=== PATIENT | male | born 1950 ===

== ENCOUNTER 2018-11-20 17:32 | Observation (INO) | payer OTHER ==
[2018-11-20] MEDS ORDERED: Iodixanol 320 MG/ML 100 ML BOTTLE IV ONE (17:40)
[2018-11-20 17:45] LABS: BASO # 0.1 K/uL (0.0-0.2); BASO % 1.4 % (0.0-2.0); EOS # 0.1 K/uL (0.0-0.7); EOS % 0.8 % (0.0-4.0); LYMPH % 21.8 % (20.0-40.0); MEAN CORPUSCULAR HEMOGLOBIN 28.3 pg (27.0-31.0); MEAN CORPUSCULAR HGB CONC 33.6 g/dL (33.0-37.0); MEAN PLATELET VOLUME 9.3 fL (7.2-11.7); MONO # 0.8 K/uL (0.0-0.8); MONO % 8.7 % (0.0-10.0); NEUT # 6.1 K/uL (1.8-7.0); NEUT % 67.3 % (50.0-75.0); NRBC % 0.1 % (0.0-2.0); RBC 4.9 Mil/uL (4.40-5.90); RED CELL DISTRIBUTION WIDTH 14.5 % (11.5-14.5)
[2018-11-20 17:47] LABS: HEMOGLOBIN 13.9 g/dL (12.0-18.0)
[2018-11-20 17:48] LABS: MEAN CELL VOLUME 84.1 fL (80.0-94.0)
[2018-11-20 17:53] LABS: INR 1.2; PROTHROMBIN TIME 13.2 SECONDS (9.7-12.2)
[2018-11-20 17:58] VITALS: BMI 27.9
--- NOTE | 2018-11-20 18:02 | CT ---
Date of service: 11/20/2018 PROCEDURE: CT HEAD WITHOUT CONTRAST. HISTORY: Code Stroke COMPARISON: None available. TECHNIQUE: Axial computed tomography images were obtained through the head/brain without intravenous contrast. Radiation dose: Total exam DLP = 918.97 mGy-cm. This CT exam was performed using one or more of the following dose reduction techniques: Automated exposure control, adjustment of the mA and/or kV according to patient size, and/or use of iterative reconstruction technique. FINDINGS: HEMORRHAGE: No intracranial hemorrhage. BRAIN: Diffuse atrophy with prominence of the ventricles and sulci noted. No mass effect or edema. Intracranial atherosclerosis. Right basal ganglia encephalomalacia. Hypodensity at the level of the right frontal horn lateral ventricle scattered periventricular and subcortical white matter hypodensities, which are nonspecific, but often seen with chronic microvascular ischemic disease. Please note that MRI with diffusion imaging is more sensitive in the detection of acute ischemic event. VENTRICLES: No hydrocephalus. CALVARIUM: Unremarkable. PARANASAL SINUSES: Unremarkable as visualized. No significant inflammatory changes. MASTOID AIR CELLS: Unremarkable as visualized. No inflammatory changes. OTHER FINDINGS: None. IMPRESSION: Right basal ganglia encephalomalacia. Additional hypodensity at the level of the right frontal horn lateral ventricle likely related to age indeterminate ischemic change. Acute on chronic ischemia cannot be excluded. Please note that MRI with diffusion imaging is more sensitive in the detection of acute ischemic event and recommended for further evaluation if indicated. Additional nonspecific white matter changes. Generalized atrophy. Findings discussed with Dr. Nina on 11/20/18 at 5:56 p.m.
[2018-11-20 18:27] LABS: ALB/GLOB RATIO 1.7 (1.0-2.1); ALBUMIN 4.5 g/dL (3.5-5.0); ALT/SGPT 14 U/L (21-72); AST/SGOT 31 U/L (17-59); BLOOD UREA NITROGEN 15 mg/dL (9-20); CALCIUM 10.1 mg/dl (8.6-10.4); GFR NON-AFRICAN AMERICAN > 60; HDL CHOLESTEROL 44 mg/dL (30-70)
[2018-11-20 18:38] LABS: LDL CHOLESTEROL 79 mg/dL (0-129)
--- NOTE | 2018-11-20 18:53 | C.PDOC ---
History Of Present Illness 68 year old male brought by EMS from doctor's office. Patient has a PSHx of quadruple bypass. Patient states that he started to feel weak. Patient's doctor sent to the ED to rule out CVA. While at the doctor's office that patient was experiencing left sided weakness and slurred that has since resolved. Patient states that he still feels weak. Time Seen by Provider: 11/20/18 18:06 Chief Complaint (Nursing): Weakness/Neurological Deficit History Per: Patient, EMS History/Exam Limitations: no limitations Onset/Duration Of Symptoms: Hrs Current Symptoms Are (Timing): Still Present - Symptoms Of CVA Associated Symptoms: Impaired Speech, Other (left sided weakness) Character Of Deficits: Left: Weakness Past Medical History Reviewed: Historical Data, Nursing Documentation, Vital Signs Vital Signs: Last Vital Signs Temp Pulse 99 H 11/20/18 18:08 Resp 18 11/20/18 18:08 BP 199/108 H 11/20/18 18:08 Pulse Ox 99 11/20/18 18:08 - Medical History PMH: Arthritis, HTN, Hypercholesterolemia Surgical History: CABG - [facility] Procedures CATARAC PHACOEMULS/ASPIR (11/13/14) INSERT LENS AT CATAR EXT (11/13/14) Family History: States: Unknown Family Hx - Social History Hx Alcohol Use: No Hx Substance Use: No - Immunization History Hx Tetanus Toxoid Vaccination: No Hx Influenza Vaccination: No Hx Pneumococcal Vaccination: No Review Of Systems Except As Marked, All Systems Reviewed And Found Negative. Constitutional: Positive for: Weakness Physical Exam - Physical Exam Appears: Well, Non-toxic, No Acute Distress Skin: Normal Color, Warm, Dry Head: Atraumatic, Normacephalic Eye(s): bilateral: Normal Inspection, PERRL, EOMI Nose: Normal Oral Mucosa: Moist Neck: Supple Chest: Symmetrical Cardiovascular: Rhythm Regular, No Murmur Respiratory: No Accessory Muscle Use, No Rales, No Rhonchi, No Wheezing Gastrointestinal/Abdominal: Normal Exam, Soft, No Tenderness, No Distention Extremity: Other (mild left upper extremity weakness. ) Extremity: Bilateral: Atraumatic, Normal Color And Temperature, Normal ROM Neurological/Psych: Oriented x3, Normal Speech, Normal Cognition ED Course And Treatment - Laboratory Results Result Diagrams: 11/20/18 17:39 11/20/18 18:09 Lab Results: PT 13.2 SECONDS (9.7-12.2) H 11/20/18 17:39 INR 1.2 11/20/18 17:39 APTT 44 SECONDS (21-34) H 11/20/18 17:39 Troponin I < 0.0120 ng/mL (0.00-0.120) 11/20/18 18:09 Total Bilirubin 0.5 mg/dL (0.2-1.3) 11/20/18 18:09 AST 31 U/L (17-59) 11/20/18 18:09 ALT 14 U/L (21-72) L 11/20/18 18:09 Alkaline Phosphatase 86 U/L (38-126) 11/20/18 18:09 Total Protein 7.2 g/dL (6.3-8.3) 11/20/18 18:09 Albumin 4.5 g/dL (3.5-5.0) 11/20/18 18:09 Globulin 2.7 gm/dL (2.2-3.9) 11/20/18 18:09 Albumin/Globulin Ratio 1.7 (1.0-2.1) 11/20/18 18:09 O2 Sat by Pulse Oximetry: 99 (in RA) NIHSS Stroke Scale 2 - Date/Time Evaluation Performed Date Performed: 11/20/18 Time Performed: 18:06 When Was NIHSS Performed: Baseline - How Severe is the Stroke Level of Consciousness: 0=Alert LOC to Questions: 0=Both comments correct LOC to commands: 0=Obeys both correctly Best Gaze: 0=Normal Visual: 0=No visual loss Facial: 0=Normal Motor Arm - Left: 0=No drift Motor Arm - Right: 0=No drift Motor Leg - Left: 0=No drift Motor Leg - Right: 0=No drift Limb Ataxia: 0=Absent Sensory: 0=Normal Best Language: 0=No aphasia Dysarthia: 0=Normal articulation Extinction & Inattention (Neglect): 0=Normal, no object Score: 0 Medical Decision Making Medical Decision Making: Assessment: CVA Plan: EKG, CXR, Head CT, and Head CTA Labs ordered with type and screen and CBC Patient given Plavix 300 mg PO Discussed case with Dr. Biswas. Head CTA negative for acute infarct. Recommended 300 mg of plavix. PATIENT ADMISSION PENDING. as per Dr. Biswas patient is not a tpa candidate secondary to rapid improvement case s/o to Dr. Cohn pending admission Disposition Discussed With : Isaura Cohn - Disposition Disposition Time: 19:00 Condition: STABLE Forms: [facility] ([employer]) - Clinical Impression Clinical Impression: CVA (cerebral vascular accident) - Scribe Statement The provider has reviewed the documentation as recorded by the Scribe (Jazmyn Morales) All medical record entries made by the Scribe were at my direction and personally dictated by me. I have reviewed the chart and agree that the record accurately reflects my personal performance of the history, physical exam, medical decision making, and the department course for this patient. I have also personally directed, reviewed, and agree with the discharge instructions and disposition.
--- NOTE | 2018-11-20 20:02 | CP.PCM.CON ---
History of Present Illness - History of Present Illness History of Present Illness: Neurology Consultation Note: Consult requested by Dr. Jacob Mr. Carlin is a 68-year-old man with a past medical history of CAD s/p CABG, HTN, gout and HLD, previous stroke and some left side weakness, who had developed dysarthria and left side weakness in his PMD's office. He was sent to the ED, but at that time, his symptoms had resolved and he had only a slight left facial droop. On my exam, he had left facial droop and slight sensory changes. He was not a candidate for IV tPA due to being outside the time window and resolving symptoms that were very minimal. His BP was elevated to 188/110 mm Hg when I saw him. CT scan of the head did not show any acute findings. However, there was a chronic right basal ganglia infarct. CTA of the head/neck did not show any LVO. Review of Systems - Constitutional Constitutional: As Per HPI - EENT Eyes: absent: As Per HPI, Blind Spots, Blurred Vision, Change in Vision, Decrea sed Night Vision, Diplopia, Discharge, Dry Eye, Exophthalmos, Floaters, Irritation, Itchy Eyes, Loss of Peripheral Vision, Pain, Photophobia, Requires Corrective Lenses, Sees Flashes, Spots in Vision, Tunnel Vision, Other Visual Disturbances, Loss of Vision, Other Ears: absent: As Per HPI, Decreased Hearing, Ear Discharge, Ear Pain, Tinnitus, Abnormal Hearing, Disequilibrium, Dizziness, Other Nose/Mouth/Throat: absent: As Per HPI, Epistaxis, Nasal Congestion, Nasal Discharge, Nasal Obstruction, Nasal Trauma, Nose Pain, Post Nasal Drip, Sinus Pa in, Sinus Pressure, Bleeding Gums, Change in Voice, Dental Pain, Dry Mouth, Dysphagia, Halitosis, Hoarsness, Lip Swelling, Mouth Lesions, Mouth Pain, Odynophagia, Sore Throat, Throat Swelling, Tongue Swelling, Facial Pain, Neck Pain, Neck Mass, Other - Cardiovascular Cardiovascular: absent: As Per HPI, Acrocyanosis, Chest Pain, Chest Pain at Rest, Chest Pain with Activity, Claudication, Diaphoresis, Dyspnea, Dyspnea on Exertion, Edema, Irregular Heart Rhythm, Pain Radiating to Arm/Neck/Jaw, Leg Edema, Leg Ulcers, Lightheadedness, Orthopnea, Palpitations, Paroxysmal Nocturnal Dyspnea, Pedal Edema, Radiating Pain, Rapid Heart Rate, Slow Heart Rate, Syncope, Other - Respiratory Respiratory: absent: As Per HPI, Cough, Dyspnea, Hemoptysis, Dyspnea on Exertion, Wheezing, Snoring, Stridor, Pain on Inspiration, Chest Congestion, Excessive Mucous Production, Change in Mucous Color, Pain with Coughing, Other - Gastrointestinal Gastrointestinal: absent: As Per HPI, Abdominal Pain, Belching, Bloating, Change in Bowel Habits, Change in Stool Character, Coffee Ground Emesis, Constipation, Cramping, Diarrhea, Dyspepsia, Dysphagia, Early Satiety, Excessive Flatus, Fecal Incontinence, Heartburn, Hematemesis, Hematochezia, Loose Stools, Melena, Nausea, Odynophagia, Temesmus, Vomiting, Other - Musculoskeletal Musculoskeletal: absent: As Per HPI, Abnormal Gait, Arthralgias, Atrophy, Back Pain, Deformity, Joint Swelling, Limited Range of Motion, Loss of Height, Muscle Cramps, Muscle Weakness, Myalgias, Neck Pain, Numbness, Radiating Pain into Limb, Stiffness, Tingling, Other - Neurological Neurological: As Per HPI - Psychiatric Psychiatric: absent: As Per HPI, Abnormal Sleep Pattern, Anhedonia, Anxiety, Auditory Hallucinations, Behavioral Changes, Change in Appetite, Change in Libido, Confusion, Depression, Difficulty Concentrating, Hallucinations, [place] joe Ideation, Hopelessness, Irritability, Memory Loss, Mood Swings, Panic Attacks, Paranoia, Suicidal Ideation, Visual Hallucinations, Tactile Hallucinations, Other - Endocrine Endocrine: absent: As Per HPI, Change in Body Appearance, Change in Libido, Cold Intolorance, Deepening of Voice, Excessive Sweating, Fatigue, Flushing, Heat Intolorance, Increase in Ring/Shoe/Hat Size, Palpitations, Polydipsia, Polyphagia, Polyuria, Other - Hematologic/Lymphatic Hematologic: absent: As Per HPI, Easy Bleeding, Easy Bruising, Lymphadenopathy, Other Past Patient History - Infectious Disease Hx of Infectious Diseases: None - Past Medical History & Family History Past Medical History?: Yes - Past Social History Smoking Status: Never Smoked - CARDIAC Hx Hypercholesterolemia: Yes Hx Hypertension: Yes - NEUROLOGICAL Hx Neurological Disorder: Yes HX Cerebrovascular Accident: Yes (1995 no deficits) - HEENT Hx HEENT Problems: Yes Hx Cataracts: Yes Hx Glaucoma: Yes - MUSCULOSKELETAL/RHEUMATOLOGICAL Hx Arthritis: Yes - PSYCHIATRIC Hx Substance Use: No - SURGICAL HISTORY Hx Coronary Artery Bypass Graft: Yes - ANESTHESIA Hx Anesthesia: Yes Hx Anesthesia Reactions: No Meds Allergies/Adverse Reactions: Allergies Allergy/AdvReac Type Severity Reaction Status Date / Time No Known Allergies Allergy Verified 11/20/18 17:34 Physical Exam - Constitutional Appears: Well - Head Exam Head Exam: ATRAUMATIC, NORMAL INSPECTION, NORMOCEPHALIC - Eye Exam Eye Exam: EOMI, Normal appearance, PERRL Pupil Exam: NORMAL ACCOMODATION, PERRL - ENT Exam ENT Exam: Mucous Membranes Moist, Normal Exam - Neck Exam Neck exam: Positive for: Normal Inspection - Respiratory Exam Respiratory Exam: Clear to Auscultation Bilateral, NORMAL BREATHING PATTERN - Cardiovascular Exam Cardiovascular Exam: REGULAR RHYTHM - GI/Abdominal Exam GI & Abdominal Exam: absent: Tenderness - Extremities Exam Extremities exam: Positive for: normal inspection - Back Exam Back exam: NORMAL INSPECTION - Neurological Exam Neurological exam: Abnormal Gait, Alert, CN II-XII Intact, Oriented x3 Additional comments: Reflexes brisk on the left side, left facial droop noted, slight decrease in sensation noted, no significant weakness. NIHSS = 2 - Psychiatric Exam Psychiatric exam: Normal Affect, Normal Mood - Skin Skin Exam: Dry, Intact, Normal Color, Warm Results - Vital Signs Recent Vital Signs: Last Vital Signs Temp 98.4 F 11/20/18 19:17 Pulse 84 11/20/18 19:17 Resp 22 11/20/18 19:17 BP 188/110 H 11/20/18 19:17 Pulse Ox 96 11/20/18 19:17 - Labs Result Diagrams: 11/20/18 17:39 11/20/18 18:09 Labs: Laboratory Results - last 24 hr 11/20/18 11/20/18 11/20/18 17:39 17:39 17:39 WBC 9.0 RBC 4.90 Hgb 13.9 D Hct 41.2 MCV 84.1 D MCH 28.3 MCHC 33.6 RDW 14.5 Plt Count 192 MPV 9.3 Neut % (Auto) 67.3 Lymph % (Auto) 21.8 [place] % (Auto) 8.7 Eos % (Auto) 0.8 Baso % (Auto) 1.4 Neut # (Auto) 6.1 Lymph # (Auto) 2.0 [place] # (Auto) 0.8 Eos # (Auto) 0.1 Baso # (Auto) 0.1 PT 13.2 H INR 1.2 APTT 44 H Sodium Potassium Chloride Carbon Dioxide Anion Gap BUN Creatinine Est GFR ( Amer) Est GFR (Non-Af Amer) Random Glucose Hemoglobin A1c 6.5 Calcium Total Bilirubin AST ALT Alkaline Phosphatase Troponin I Total Protein Albumin Globulin Albumin/Globulin Ratio Triglycerides Cholesterol LDL Cholesterol Direct HDL Cholesterol Blood Type Antibody Screen 11/20/18 11/20/18 17:39 18:09 WBC RBC Hgb Hct MCV MCH MCHC RDW Plt Count MPV Neut % (Auto) Lymph % (Auto) [place] % (Auto) Eos % (Auto) Baso % (Auto) Neut # (Auto) Lymph # (Auto) [place] # (Auto) Eos # (Auto) Baso # (Auto) PT INR APTT Sodium 135 Potassium 4.4 Chloride 101 Carbon Dioxide 24 Anion Gap 14 BUN 15 Creatinine 1.2 Est GFR ( Amer) > 60 Est GFR (Non-Af Amer) > 60 Random Glucose 111 H Hemoglobin A1c Calcium 10.1 Total Bilirubin 0.5 AST 31 ALT 14 L Alkaline Phosphatase 86 Troponin I < 0.0120 Total Protein 7.2 Albumin 4.5 Globulin 2.7 Albumin/Globulin Ratio 1.7 Triglycerides 194 H Cholesterol 135 LDL Cholesterol Direct 79 HDL Cholesterol 44 Blood Type B POSITIVE Antibody Screen Negative Assessment & Plan (1) CVA (cerebral vascular accident) Assessment and Plan: Likely due to uncontrolled hypertension and other risk factors. Small vessel ischemic stroke is more likely. I recommend the followin. Telemetry 2. MRI brain without contrast 3. Echocardiogram 4. Carotid dopplers bilaterally 5. Check Lipid panel, HbA1c, B12, folate, TSH, Vitamin D levels 6. Fluids with NS at 100 mL/hr 7. Load with Plavix 300 mg ONCE, and continue 75 mg daily along with aspirin 81 mg daily for 21 days, then continue only Plavix 75 mg monotherapy indefinitely. 8. Permissive HTN (only treat BP higher than 220/110 mm Hg for the next 36 hours) 9. PT/OT eval and treatment 10. Case management consult Thank you for this consultation. Status: Acute
[2018-11-20] MEDS ORDERED: Metoprolol Succinate 50 mg XL Tab PO SCH (20:45)
--- NOTE | 2018-11-21 04:27 | HP ---
HISTORY OF PRESENT ILLNESS: This is a 68-year-old [place] male, came to the office with history of left-sided weakness and dysarthria. The patient has severe dizziness and headache. No history of nausea, vomiting, or abdominal pain. The patient's blood pressure was high in the office with possible CVA. The patient was sent to the emergency room. No history of chest pain or loss of consciousness. PAST MEDICAL HISTORY: History of coronary artery disease with bypass surgery, hypertension, stroke many years ago, diabetes. ALLERGIES: NO KNOWN ALLERGIES. SOCIAL HISTORY: Nonsmoker, nonalcoholic. No IVDA. MEDICATIONS: The patient's medications are reviewed by me. PHYSICAL EXAMINATION: GENERAL: This is a 68-year-old [place] male, awake, comfortable. VITAL SIGNS: Temperature 98.8, pulse 84, respirations 22, and blood pressure 188/110 mmHg, pulse ox is 96% on room air. HEENT: Normal. NECK: JVP is flat. Carotids, no bruits. LUNGS: No rales. No wheezing. HEART: S1 and S2 normal. No gallop. No murmur. ABDOMEN: Soft and nontender. No organomegaly. CENTRAL NERVOUS SYSTEM: The patient used to have left-sided weakness and dysarthria, but in the emergency room, the findings improved. LABORATORY DATA: The patient had CAT scan of the head done which is negative for acute infarct. IMPRESSION: Possible cerebrovascular accident, accelerated hypertension, coronary artery disease. PLAN: The patient will be admitted to telemetry bed. We will get neurological evaluation done. We will give Plavix and aspirin. Other workup as needed. MRI of the brain. Rory Carlin MD
[2018-11-21 09:11] LABS: FOLATE 5.5 ng/mL
--- NOTE | 2018-11-21 09:33 | RAD ---
Date of service: 11/20/2018 Chest x-ray single frontal view HISTORY: Code Stroke COMPARISON: No prior. FINDINGS: LUNGS: Mild venous congestion. Patchy increased markings at the left lung base. PLEURA: No significant pleural effusion identified, no pneumothorax apparent. CARDIOVASCULAR: Status post median sternotomy and CABG. Tortuous ectatic aorta. Atherosclerotic calcification at the aortic knob. Cardiomegaly. OSSEOUS STRUCTURES: Degenerative changes in the spine. VISUALIZED UPPER ABDOMEN: Normal. OTHER FINDINGS: None. IMPRESSION: Mild venous congestion. Cardiomegaly. Patchy increased markings at the left lung base.
--- NOTE | 2018-11-21 12:08 | CP.PCM.PN ---
Subjective - Date & Time of Evaluation Date of Evaluation: 11/21/18 Time of Evaluation: 12:05 - Subjective Subjective: PT FEELS BETTER. COUGH PRESENT. BP HIGH. NO FOCAL DEFICIT. Objective - Vital Signs/Intake and Output Vital Signs (last 24 hours): Temp Pulse Resp BP Pulse Ox 98.5 F 91 H 18 196/118 H 96 11/21/18 07:00 11/21/18 07:00 11/21/18 07:00 11/21/18 07:00 11/21/18 07:00 - Medications Medications: Current Medications Allopurinol (Zyloprim) 100 mg PO DAILY [facility] Amlodipine Besylate (Norvasc) 10 mg PO DAILY [facility] Aspirin (Aspirin Chewable) 81 mg PO DAILY [facility] Clopidogrel Bisulfate (Plavix) 75 mg PO DAILY [facility] Duloxetine HCl (Cymbalta) 20 mg PO DAILY [facility] Enalapril Maleate (Vasotec) 5 mg PO DAILY [facility] Finasteride (Proscar) 5 mg PO DAILY [facility] Gemfibrozil (Lopid) 600 mg PO ONCE [facility] Metoprolol Succinate (Toprol Xl) 50 mg PO DAILY [facility] Multivitamins (Hexavitamin) 1 tab PO DAILY [facility] Pneumococcal Polyvalent Vaccine (Pneumovax 23 Vaccine) 0.5 ml IM .ONCE ONE Stop: 11/23/18 14:01 Rosuvastatin Calcium (Crestor) 10 mg PO HS [facility] Tamsulosin HCl (Flomax) 0.4 mg PO DAILY [facility] - Labs Labs: 11/20/18 17:39 11/20/18 18:09 PT 13.2 SECONDS (9.7-12.2) H 11/20/18 17:39 INR 1.2 11/20/18 17:39 APTT 44 SECONDS (21-34) H 11/20/18 17:39 - Constitutional Appears: No Acute Distress - Eye Exam Eye Exam: PERRL - ENT Exam ENT Exam: Mucous Membranes Moist - Respiratory Exam Respiratory Exam: Clear to Ausculation Bilateral, NORMAL BREATHING PATTERN - Cardiovascular Exam Cardiovascular Exam: REGULAR RHYTHM, +S1, +S2 - GI/Abdominal Exam GI & Abdominal Exam: Soft, Normal Bowel Sounds - Extremities Exam Extremities Exam: Full ROM, Normal Capillary Refill, Normal Inspection. absent: Joint Swelling, Pedal Edema - Back Exam Back Exam: NORMAL INSPECTION - Neurological Exam Neurological Exam: Alert, Awake, CN II-XII Intact, Normal Gait, Oriented x3 Assessment and Plan - Assessment and Plan (Free Text) Assessment: TIA. ACCELERATED HTN. Plan: DIET RESUMED. CONTROL BP. NEURO F/U.
[2018-11-21] MEDS: Multiple Vitamins Tab PO SCH (12:32)
[2018-11-21] MEDS: Metoprolol Succinate 50 mg XL Tab PO SCH (12:33)
--- NOTE | 2018-11-21 13:02 | MRI ---
Date of service: 11/21/2018 PROCEDURE: MRI BRAIN WITHOUT CONTRAST HISTORY: CVA COMPARISON: Comparison made with prior CT scan of the brain and CTA brain dated 11/20/2018. TECHNIQUE: Multiplanar, multisequence MR images of the brain were obtained without intravenous contrast enhancement. FINDINGS: HEMORRHAGE: No acute parenchymal, subarachnoid or extra-axial hemorrhage. No evidence of hemosiderin deposition identified on gradient echo weighted sequence. DWI: No evidence of an acute or early subacute infarction seen on diffusion imaging.. BRAIN PARENCHYMA: Chronic infarct seen in the right lateral basal ganglia extending superiorly and medially into the right bailey radiata and centrum semiovale. There is associated Wallerian degeneration right cerebral peduncle and ex vacuo dilatation of the right lateral ventricle. Mild diffuse/confluent chronic periventricular white matter ischemic changes are also present with few scattered discrete lacunar type infarcts scattered about the deep and subcortical white matter both cerebral hemispheres. Moderate generalized volume loss. VENTRICLES: No obstructive hydrocephalus. CRANIUM: Unremarkable. ORBITS: Changes of bilateral cataract surgery again noted. PARANASAL SINUSES/MASTOIDS: Clear VASCULAR SYSTEM: Visualized major vascular flow voids at skull base patent. OTHER FINDINGS: None. IMPRESSION: Slightly limited motion degraded study. No evidence of acute intracranial hemorrhage or infarct. Chronic infarct right lateral basal ganglia extending superiorly and medially into the right bailey radiata and centrum semiovale. There is associated Wallerian degeneration right cerebral peduncle and ex vacuo dilatation of the right lateral ventricle. Mild diffuse/confluent chronic periventricular white matter ischemic changes are also present with few scattered discrete lacunar type infarcts scattered about the deep and subcortical white matter both cerebral hemispheres. Moderate generalized volume loss
--- NOTE | 2018-11-21 13:14 | CT ---
Date of service: 11/20/2018 PROCEDURE: CT Angiography of the neck and brain HISTORY: code stroke COMPARISON: None. TECHNIQUE: Contiguous axial images of the neck and brain were obtained from the level of the vertex of the skull to the superior mediastinum in the arteriographic phase of enhancement. Coronal and sagittal reformats or also generated. IV contrast dose: 100 cc Omnipaque 300 contrast material. Radiation dose: Total exam DLP = 617.21 mGy-cm. This CT exam was performed using one or more of the following dose reduction techniques: Automated exposure control, adjustment of the mA and/or kV according to patient size, and/or use of iterative reconstruction technique. FINDINGS: The there are mild calcified atherosclerotic plaque changes seen along the aortic arch and at the origins of the great vessels.. The left common carotid artery and brachiocephalic artery arise from a common trunk. The common carotid arteries are also widely patent. Mild mild calcified atherosclerotic plaque seen along both carotid bifurcations left greater than right with slight extension into the proximal margins of both internal carotid arteries.. Changes result in narrowing approximately 40 % bilaterally.. The distal internal carotid arteries including the petrous cavernous and supraclinoid segments also patent despite some mild calcified atherosclerotic plaque along the carotid siphons. The vertebral arteries are widely patent left-sided which is larger in caliber more dominant than the right side. Basilar artery is also patent. The visualized major branches of the [id number] are also patent with no evidence of large aneurysm. Distal branches of the anterior, middle and posterior cerebral arteries appear relatively symmetric. No evidence of large vascular malformation. OTHER FINDINGS: Mild multilevel degenerative spondylosis of the cervical spine. Lung apices are clear. IMPRESSION: Calcified noted at partially calcified atherosclerotic plaque noted at both carotid bifurcations with slight extension into the proximal margins of both internal carotid arteries left greater than right. Changes result in approximately 40 percent diameter stenosis on the on both sides. Mild calcified atherosclerotic plaque both cavernous carotid arteries. The Calcified atherosclerotic plaque along the aortic arch and origins of the great vessels. The right brachiocephalic and left common carotid arteries arise from a common trunk.
--- NOTE | 2018-11-21 14:06 | VASCLAB ---
Date of service: 11/21/2018 PROCEDURE: Carotid Duplex Exam. HISTORY: CVA COMPARISON: Head/Neck CTA performed, 11/20/2018. TECHNIQUE: Grayscale and duplex Doppler evaluation of the cervical carotid and vertebral arteries were performed. The common carotid, carotid bifurcations and cervical Internal Carotid Artery (ICA) and proximal External Carotid Artery (ECA) were evaluated. The vertebral arteries were evaluated for gross patency and flow direction. Report prepared by TIFFANIE Ward FINDINGS: RIGHT CAROTID ARTERIES: 1. Common Carotid Artery: No significant focal plaque formation of the right common carotid artery. Maximum Peak Systolic velocity: 95 cm/sec: End-diastolic velocity 13 cm/sec. 2. Carotid Bifurcation: Heterogeneous plaque formation. Maximum Peak Systolic velocity: 56 cm/sec: End-diastolic velocity 14 cm/sec. 3. Internal Carotid Artery: Plaque description: Heterogeneous 3.1. Proximal Segment: Peak systolic velocity 81 cm/sec: End-diastolic velocity 27 cm/sec - % stenosis 0-15% 3.2. Middle Segment: Peak systolic velocity 69 cm/sec: End-diastolic velocity 16 cm/sec - % stenosis 0-15% 3.3. Distal Segment: Peak systolic velocity 71 cm/sec: End-diastolic velocity 14 cm/sec - % stenosis 0-15% 4. External Carotid Artery: No significant focal plaque formation. Peak systolic velocity 105 cm/sec 5. ICA/CCA Ratio: 1.2 LEFT CAROTID ARTERIES: 1. Common Carotid Artery: No significant focal plaque formation of the left common carotid artery. Maximum Peak Systolic velocity: 89 cm/sec: End-diastolic velocity 21 cm/sec. 2. Carotid Bifurcation: Calcific plaque formation. Maximum Peak Systolic velocity: 56 cm/sec: End-diastolic velocity 14 cm/sec. 3. Internal Carotid Artery: Plaque description: Calcific 3.1. Proximal Segment: Peak systolic velocity 255 cm/sec: End-diastolic velocity 80 cm/sec - % stenosis 70-95% 3.2. Middle Segment: Peak systolic velocity 98 cm/sec: End-diastolic velocity 33 cm/sec - % stenosis 0-15% 3.3. Distal Segment: Peak systolic velocity 84 cm/sec: End-diastolic velocity 31 cm/sec - % stenosis 0-15% 4. External Carotid Artery: No significant focal plaque formation. Peak systolic velocity 116 cm/sec 5. ICA/CCA Ratio: 3.9 VERTEBRAL ARTERIES: 1. Right Vertebral Artery: The right vertebral artery flow direction is antegrade. 2. Left Vertebral Artery: The left vertebral artery flow direction is antegrade. OTHER FINDINGS: 1. Right Brachial Blood pressure: 160/100 mmHg. 2. Left Brachial Blood pressure: 180/100 mmHg. IMPRESSION: RIGHT: Duplex scan does not suggest hemodynamically significant stenosis of the right extracranial carotid arteries. LEFT: Increased peak systolic velocities at the proximal internal carotid artery, suggesting 70-95% stenosis. Findings were reported to CONCEPCIÓN Harris at 9:34 a.m.
--- NOTE | 2018-11-21 15:49 | CP.PCM.PN ---
Subjective - Date & Time of Evaluation Date of Evaluation: 11/21/18 Time of Evaluation: 15:47 - Subjective Subjective: Neuro Follow-Up: Mr. Carlin was evaluated this afternoon at bedside. Pt's present. I offered to use a translation machine for the neuro exam and interview, however, pt and refused and requested that their daughter in law (Su Carlin) translate. Pt states that he feels good today and has no new complaints. He admits to a mild h/a this morning but it resolved shortly after. He is eager to be d/c home. Currently denies dysarthria, h/a, dizziness, visual changes, chest pain, palpitations, sob, abd pain, paresthesias, fever/chills. Objective - Vital Signs/Intake and Output Vital Signs (last 24 hours): Temp Pulse Resp BP Pulse Ox 98.5 F 91 H 18 135/86 96 11/21/18 07:00 11/21/18 07:00 11/21/18 07:00 11/21/18 14:43 11/21/18 07:00 - Medications Medications: Current Medications Allopurinol (Zyloprim) 100 mg PO DAILY [facility] Last Admin: 11/21/18 12:32 Dose: 100 mg Amlodipine Besylate (Norvasc) 10 mg PO DAILY [facility] Last Admin: 11/21/18 12:34 Dose: 10 mg Aspirin (Aspirin Chewable) 81 mg PO DAILY [facility] Last Admin: 11/21/18 12:31 Dose: 81 mg Clopidogrel Bisulfate (Plavix) 75 mg PO DAILY [facility] Last Admin: 11/21/18 12:31 Dose: 75 mg Duloxetine HCl (Cymbalta) 20 mg PO DAILY [facility] Last Admin: 11/21/18 12:30 Dose: 20 mg Enalapril Maleate (Vasotec) 5 mg PO DAILY [facility] Last Admin: 11/21/18 12:31 Dose: 5 mg Finasteride (Proscar) 5 mg PO DAILY [facility] Last Admin: 11/21/18 12:32 Dose: 5 mg Gemfibrozil (Lopid) 600 mg PO DAILY [facility] Metoprolol Succinate (Toprol Xl) 50 mg PO DAILY [facility] Last Admin: 11/21/18 12:33 Dose: 50 mg Multivitamins (Hexavitamin) 1 tab PO DAILY [facility] Last Admin: 11/21/18 12:32 Dose: 1 tab Pneumococcal Polyvalent Vaccine (Pneumovax 23 Vaccine) 0.5 ml IM .ONCE ONE Stop: 11/23/18 14:01 Rosuvastatin Calcium (Crestor) 10 mg PO HS [facility] Tamsulosin HCl (Flomax) 0.4 mg PO DAILY [facility] Last Admin: 11/21/18 12:32 Dose: 0.4 mg - Labs Labs: 11/20/18 17:39 11/20/18 18:09 PT 13.2 SECONDS (9.7-12.2) H 11/20/18 17:39 INR 1.2 11/20/18 17:39 APTT 44 SECONDS (21-34) H 11/20/18 17:39 - Constitutional Appears: Well, Non-toxic, No Acute Distress - Head Exam Head Exam: ATRAUMATIC, NORMAL INSPECTION, NORMOCEPHALIC - Eye Exam Eye Exam: EOMI, Normal appearance, PERRL Pupil Exam: NORMAL ACCOMODATION, PERRL - ENT Exam ENT Exam: Mucous Membranes Moist - Neck Exam Neck Exam: Full ROM, Normal Inspection - Respiratory Exam Respiratory Exam: NORMAL BREATHING PATTERN - Extremities Exam Extremities Exam: Full ROM Additional comments: from to all extremities, though there is a slight weakness to LUE - Back Exam Back Exam: Full ROM - Neurological Exam Neurological Exam: Alert, Awake, CN II-XII Intact, Oriented x3, Reflexes Normal Neuro motor strength exam: Left Upper Extremity: 4 (mower sharpener 5/5), Right Upper Extremity: 5 (mower sharpener 5/5), Left Lower Extremity: 5, Right Lower Extremity: 5 Additional comments: Speech clear, no dysarthria noted No facial asymmetry noted FROM to all extremities, though there is a slight weakness to LUE No dysmetria or pronator drift No tremors or abnormal movements - Psychiatric Exam Psychiatric exam: Normal Affect, Normal Mood - Skin Skin Exam: Normal Color Assessment and Plan (1) TIA (transient ischemic attack) Assessment & Plan: Imaging reviewed: -MRI Brain (11/20/18): Slightly limited motion degraded study. No evidence of acute intracranial hemorrhage or infarct. Chronic infarct right lateral basal ganglia extending superiorly and medially into the right bailey radiata and centrum semiovale. There is associated Wallerian degeneration right cerebral peduncle and ex vacuo dilatation of the right lateral ventricle. Mild diffuse/confluent chronic periventricular white matter ischemic changes are also present with few scattered discrete lacunar type infarcts scattered about the deep and subcortical white matter both cerebral hemispheres. Moderate generalized volume loss. -CTA Head and neck (11/20/18): Calcified noted at partially calcified atherosclerotic plaque noted at both carotid bifurcations with slight extension into the proximal margins of both internal carotid arteries left greater than r ight. Changes result in approximately 40 percent diameter stenosis on the on both sides. Mild calcified atherosclerotic plaque both cavernous carotid arteries. The calcified atherosclerotic plaque along the aortic arch and origins of the great vessels. The right brachiocephalic and left common carotid arteries arise from a common trunk. -CT Head (11/20/18): Right basal ganglia encephalomalacia. Additional hypodensity at the level of the right frontal horn lateral ventricle likely related to age indeterminate ischemic change. Acute on chronic ischemia cannot be excluded. Please note that MRI with diffusion imaging is more sensitive in the detection of acute ischemic event and recommended for further evaluation if indicated. Additional nonspecific white matter changes. Generalized atrophy. -Continue Plavix 75 mg PO daily along with Aspirin 81 mg PO daily for 21 days (started on 11/20/18 and ends on 12/11/18), then continue only Plavix 75 mg PO daily mono therapy indefinitely. -Continue Statin. -Continue permissive HTN until tomorrow morning at 7am (only treat BP higher than 220/110 mm Hg). -Continue PT/OT -Discussed secondary stroke prevention, dietary modifications and compliance with HTN meds w pt and family. -Notify neuro team of any acute changes. If pt is d/c tomorrow, he can f/u with PMD and neuro in the office within 1 month. Please provide with Dr[address] Biswas's office information. Ronda Denny DNP, RN TRANSITIONAL CARE D/W Dr. Biswas Status: Acute NIHSS Stroke Scale - Date/Time Evaluation Performed Date Performed: 11/21/18 Time Performed: 16:21 When Was NIHSS Performed: Re-evaluation - How Severe is the Stroke Level of Consciousness: 0=Alert LOC to Questions: 0=Both comments correct LOC to commands: 0=Obeys both correctly Best Gaze: 0=Normal Visual: 0=No visual loss Facial: 0=Normal Motor Arm - Left: 0=No drift Motor Arm - Right: 0=No drift Motor Leg - Left: 0=No drift Motor Leg - Right: 0=No drift Limb Ataxia: 0=Absent Sensory: 0=Normal Best Language: 0=No aphasia Dysarthia: 0=Normal articulation Extinction & Inattention (Neglect): 0=Normal, no object Score: 0
[2018-11-21 17:59] VITALS: RESP 20
--- NOTE | 2018-11-21 20:18 | CARD ---
APPROVED REPORT Date of service: 11/21/2018 EXAM: Two-dimensional and M-mode echocardiogram with Doppler and color Doppler. Other Information Quality : GoodRhythm : INDICATION CVA/TIA Surgery/Intervention CABG: RISK FACTORS Hypertension Hyperlipidemia 2D DIMENSIONS IVSd1.4 (0.7-1.1cm)LVDd3.7 (3.9-5.9cm) PWd1.0 (0.7-1.1cm)LA Vvfvkv05 (18-58mL) LVDs2.8 (2.5-4.0cm)FS (%) 24.1 % LVEF (Arteaga's)55 % M-Mode DIMENSIONS Left Atrium (MM)3.06 (2.5-4.0cm)IVSd1.18 (0.7-1.1cm) Aortic Root3.39 (2.2-3.7cm)LVDd4.20 (4.0-5.6cm) Aortic Cusp Exc.1.87 (1.5-2.0cm)PWd1.02 (0.7-1.1cm) FS (%) 31 %LVDs2.89 (2.0-3.8cm) LVEF (%)55 (>50%) Mitral Valve MV E Fpgdwdvw37.6cm/sMV A Ncsfskqh549.5cm/sE/A ratio0.4 TDI Lateral E' Peak V4.22cm/sMedial E' Peak V3.83cm/sE/Lateral E'11.5 E/Medial E'12.7 Tricuspid Valve TR Peak [id number]/sTR Peak Gr.[id number] LEFT VENTRICLE The left ventricle is normal size. Septal thickness is moderately increased, But there is no evidence of HOCM. No LVOT gradient. The left ventricular function is hyperdynamic. The left ventricular ejection fraction is within the normal range. 75% No regional wall motion abnormalities noted. Transmitral Doppler flow pattern is Grade I-abnormal relaxation pattern. No left ventricle thrombus noted on this study. There is no ventricular septal defect visualized. There is no left ventricular aneurysm. There is no mass noted in the left ventricle. RIGHT VENTRICLE The right ventricle is normal size. There is normal right ventricular wall thickness. The right ventricular systolic function is normal. ATRIA The left atrium size is normal. The right atrium size is normal. The interatrial septum is intact with no evidence for an atrial septal defect. AORTIC VALVE The aortic valve is normal in structure and function. No aortic regurgitation is present. There is no aortic valvular stenosis. There is no aortic valvular vegetation. MITRAL VALVE The mitral valve is normal in structure and function. There is no evidence of mitral valve prolapse. There is no mitral valve stenosis. There is no mitral valve regurgitation noted. TRICUSPID VALVE The tricuspid valve is normal in structure and function. There is mild tricuspid valve regurgitation noted. There is no tricuspid valve prolapse or vegetation. There is no tricuspid valve stenosis. PULMONIC VALVE The pulmonary valve is normal in structure and function. There is no pulmonic valvular regurgitation. There is no pulmonic valvular stenosis. GREAT VESSELS The aortic root is normal in size. The ascending aorta is normal in size. The pulmonary artery is normal. The IVC is normal in size and collapses >50% with inspiration. PERICARDIAL EFFUSION The pericardium appears normal. There is no pleural effusion. <Conclusion> The left ventricular function is hyperdynamic. Normal wall motion. Septal thickness is moderately increased, But there is no evidence of HOCM. No LVOT gradient. Transmitral Doppler flow pattern is Grade I-abnormal relaxation pattern. Normal Doppler.
[2018-11-22 07:54] VITALS: PULSE 94; TEMP 98.5
[2018-11-22] MEDS: Multiple Vitamins Tab PO SCH (09:42)
[2018-11-22 09:45] VITALS: BP 121/81
[2018-11-22] MEDS: Metoprolol Succinate 50 mg XL Tab PO SCH (09:47)
[2018-11-22 11:31] VITALS: O2SAT 98
--- NOTE | 2018-11-22 11:53 | CP.PCM.PN ---
Subjective - Date & Time of Evaluation Date of Evaluation: 11/22/18 Time of Evaluation: 11:51 - Subjective Subjective: awake, alert comfortable. no focal weakness. bp controlled. mri wnl. carotid doppler neg. Objective - Vital Signs/Intake and Output Vital Signs (last 24 hours): Temp Pulse Resp BP Pulse Ox 98.5 F 94 H 20 121/81 98 11/22/18 07:00 11/22/18 09:00 11/22/18 07:00 11/22/18 09:42 11/22/18 09:00 - Medications Medications: Current Medications Allopurinol (Zyloprim) 100 mg PO DAILY [facility] Last Admin: 11/22/18 09:42 Dose: 100 mg Amlodipine Besylate (Norvasc) 10 mg PO DAILY [facility] Last Admin: 11/22/18 09:42 Dose: 10 mg Aspirin (Aspirin Chewable) 81 mg PO DAILY [facility] Last Admin: 11/22/18 09:43 Dose: 81 mg Clopidogrel Bisulfate (Plavix) 75 mg PO DAILY [facility] Last Admin: 11/22/18 09:42 Dose: 75 mg Duloxetine HCl (Cymbalta) 20 mg PO DAILY [facility] Last Admin: 11/22/18 09:47 Dose: 20 mg Enalapril Maleate (Vasotec) 5 mg PO DAILY [facility] Last Admin: 11/22/18 09:42 Dose: 5 mg Finasteride (Proscar) 5 mg PO DAILY [facility] Last Admin: 11/22/18 09:42 Dose: 5 mg Gemfibrozil (Lopid) 600 mg PO DAILY [facility] Last Admin: 11/22/18 09:47 Dose: 600 mg Metoprolol Succinate (Toprol Xl) 50 mg PO DAILY [facility] Last Admin: 11/22/18 09:47 Dose: 50 mg Multivitamins (Hexavitamin) 1 tab PO DAILY [facility] Last Admin: 11/22/18 09:42 Dose: 1 tab Pneumococcal Polyvalent Vaccine (Pneumovax 23 Vaccine) 0.5 ml IM .ONCE ONE Stop: 11/23/18 14:01 Rosuvastatin Calcium (Crestor) 10 mg PO HS [facility] Last Admin: 11/21/18 21:13 Dose: 10 mg Tamsulosin HCl (Flomax) 0.4 mg PO DAILY [facility] Last Admin: 11/22/18 09:42 Dose: 0.4 mg - Labs Labs: 11/20/18 17:39 11/20/18 18:09 PT 13.2 SECONDS (9.7-12.2) H 11/20/18 17:39 INR 1.2 11/20/18 17:39 APTT 44 SECONDS (21-34) H 11/20/18 17:39 - Constitutional Appears: No Acute Distress - Eye Exam Eye Exam: Normal appearance, PERRL - ENT Exam ENT Exam: Mucous Membranes Moist - Respiratory Exam Respiratory Exam: Clear to Ausculation Bilateral, NORMAL BREATHING PATTERN - Cardiovascular Exam Cardiovascular Exam: REGULAR RHYTHM, +S1, +S2 - GI/Abdominal Exam GI & Abdominal Exam: Soft, Normal Bowel Sounds - Neurological Exam Neurological Exam: Alert, Awake, CN II-XII Intact, Normal Gait, Oriented x3 - Psychiatric Exam Psychiatric exam: Normal Affect, Normal Mood Assessment and Plan - Assessment and Plan (Free Text) Assessment: tia, accelerated htn. cad. Plan: d/c home. ct all meds.
--- NOTE | 2018-11-23 06:51 | CARD ---
APPROVED REPORT Date of service: 11/20/2018 EKG Measurement Heart [id number] <Conclusion> Normal sinus rhythm Cannot rule out Inferior infarct, age undetermined ST & T wave abnormality, consider lateral ischemia Abnormal ECG
[2018-11-23] MEDS ORDERED: Pneumococcal 23-Valent Vaccine IM ONE (14:00)
== END 2018-11-22 14:16 | disposition home or self-care (01) ==
LOC: C.ER 17:32 → C.9E 20:17 → C.6T 20:59
PROVIDERS: ADMIT Internal Medicine; ATTEND Internal Medicine
DX: G45.9 Transient cerebral ischemic attack, unspecified (principal); I69.254 Hemiplegia and hemiparesis following other nontraumatic intracranial hemorrhage affecting left non-dominant side; E78.5 Hyperlipidemia, unspecified; I25.10 Atherosclerotic heart disease of native coronary artery without angina pectoris; Z95.1 Presence of aortocoronary bypass graft; M10.9 Gout, unspecified; E11.9 Type 2 diabetes mellitus without complications; I10 Essential (primary) hypertension; H40.9 Unspecified glaucoma
CPT/HCPCS: 36415; 70450; 70496; 70498; 70551; 71045; 80053; 80061; 82306; 82607; 82746; 82948; 83036; 84443; 84484; 85025; 85610; 85730; 86850; 86900; 92610; 93005; 93306; 93880; 97110; 97116; 97162; 97166; 97530; 99285; G0378; G8978; G8979; G8987; G8988; G8996; G8997; G8998; Q9967